=== PATIENT | female | born 1995 ===

== ENCOUNTER 2016-12-19 15:26 | Emergency (ER) | payer OTHER ==
--- NOTE | 2016-12-19 16:38 | UC ---
General HPI - HPI Summary HPI Summary: "has been extremely tired since Tuesday of this week. She states it is not normal for her to be so tired. She denies body aches and fevers." She is from [place] and here for the summer for [employer] Her Mom is a nurse and told her to get tested for thyroid and mono. Denies depression. has not been sexually active a in a few yrs and denies . No ST, no congestion. Feels fine o/w. Has been sleeping about 18 hrs per day. goes to work for 4 hrs, comes home and sleeps, gets up to eat and then sleeps again until morning. - History of Current Complaint Chief Complaint: UCGeneralIllness Stated Complaint: EXTREMELY FATIGUED Time Seen by Provider: 12/19/16 16:25 - Allergy/Home Medications Allergies/Adverse Reactions: Allergies Allergy/AdvReac Type Severity Reaction Status Date / Time yarelis Allergy Hives Uncoded 12/19/16 16:17 Home Medications: Home Medications Nuvaring 1 dose VAGINAL MONTHLY 12/19/16 [History Confirmed 12/19/16] PMH/Surg Hx/FS Hx/Imm Hx Previously Healthy: Yes - Surgical History Surgical History: None - Family History Known Family History: Negative: Cardiac Disease - Social History Alcohol Use: Weekly Substance Use Type: None Smoking Status (MU): Never Smoked Tobacco Review of Systems Constitutional: Fatigue Skin: Negative Eyes: Negative ENT: Negative Respiratory: Negative Cardiovascular: Negative Gastrointestinal: Negative Genitourinary: Negative Motor: Negative Neurovascular: Negative Musculoskeletal: Negative Neurological: Negative Psychological: Negative All Other Systems Reviewed And Are Negative: Yes Physical Exam Triage Information Reviewed: Yes Appearance: Well-Appearing, No Pain Distress, Well-Nourished - very pleasant Vital Signs: Initial Vital Signs Temp 98.2 F 12/19/16 16:13 Pulse 100 12/19/16 16:13 Resp 14 12/19/16 16:13 BP 134/72 12/19/16 16:13 Pulse Ox 100 12/19/16 16:13 Vital Signs Reviewed: Yes Eye Exam: Normal ENT Exam: Normal ENT: Positive: Pharynx normal, TMs normal. Negative: Pharyngeal erythema Dental Exam: Normal Neck exam: Normal Neck: Positive: Supple, Nontender, No Lymphadenopathy Respiratory Exam: Normal Respiratory: Positive: Lungs clear, Normal breath sounds, No respiratory distress, No accessory muscle use Cardiovascular Exam: Normal Cardiovascular: Positive: RRR, No Murmur, Pulses Normal, Brisk Capillary Refill Abdominal Exam: Normal Abdomen Description: Positive: Nontender, Soft Musculoskeletal Exam: Normal Neurological Exam: Normal Psychological Exam: Normal Skin Exam: Normal Course/Dx - Course Course Of Treatment: She does not have pcp here as she is from [facility]. Significant sudden onset fatigue, may be viral in nature. CBC, tsh and monospot. she agrees to call in 2 days. Should f/u with N, PCP. She is very agreeabel with this plan. - Differential Dx - Multi-Symptom Differential Diagnoses: Other - fatigue Provider Diagnoses: fatigue Discharge - Discharge Plan Condition: Stable Disposition: HOME Patient Education Materials: Fatigue (ED) [facility]errals[facility] [Provider Group] Additional Instructions: We have ordered a blood count, thyroid test and mono test. Please call in 2 days for the results and follow up with a provider at the [facility] as we discussed.
[2016-12-20 10:35] LABS: EBV Response YES
[2016-12-20 10:46] LABS: Hematocrit 39 % (35-47); Hemoglobin 12.7 g/dl (12.0-16.0); Mean Corpuscular HGB Conc 33 g/dl (31-36); Mean Corpuscular Hemoglobin 30 pg (27-31); Mean Corpuscular Volume 91 fL (80-97); Mean Platelet Volume 8 um3 (7.4-10.4); Red Blood Count 4.27 10^6/ul (4.0-5.4); Red Cell Distribution Width 14 % (10.5-15); White Blood Count 8.9 10^3/ul (3.5-10.8)
[2016-12-20 10:53] LABS: Add Diff/Slide Review? Slide Review Added; Comments Flag Yes
[2016-12-20 13:44] LABS: Manual Entry Verification MD; Mono Internal Control QC Line Present
[2016-12-21 14:47] LABS: EBV Capsid Ag IgG Ab Positive (Negative); EBV Capsid Ag IgM Ab Negative (Negative)
== END 2016-12-19 16:54 | disposition home or self-care (01) ==
LOC: UCCORT 15:26
DX: R53.83 Other fatigue (principal)
CPT/HCPCS: 36415; 84443; 85025; 86308; 86664; 86665; 99201; G0463